=== PATIENT | female | born 1985 | race Caucasian/White ===

== ENCOUNTER 2021-08-04 17:29 | Outpatient (CLI) | payer BC, SELFPAY ==
--- NOTE | ~2021-08-04 | CT_ITS ---
EXAMINATION: CT abdomen pelvis wo con DATE: 08/04/2021 17:55 INDICATION: Abdominal and pelvic swelling TECHNIQUE: Computed tomography (CT) of the abdomen and pelvis was performed without intravenous contr ast. The dose-length product was 781.22 mGy-cm. Automated exposure control and iterative reconstructi on technique were employed. COMPARISON: None. FINDINGS: Lung bases are unremarkable. Heart size normal. No significant pleural or pericardial effus ion. There are surgical changes of the stomach. The liver, spleen, pancreas, adrenal glands and kidne ys are unremarkable. There is skin thickening of the breasts with soft tissue nodularity. Recommend c orrelation with mammography. No abnormal pelvic masses or fluid collections. Nonobstructive bowel gas pattern. There is a tiny fat-containing umbilical hernia. No acute osseous abnormality. No lymphaden opathy. No significant vascular abnormality. IMPRESSION: 1. Skin thickening of the breasts with areas of superficial nodularity. Correlation with diagnostic m ammography recommended. 2: No acute abdominal abnormality. Reviewed, dictated and finalized at location A. IMPRESSION: 1. Skin thickening of the breasts with areas of superficial nodularity. Correla tion with diagnostic mammography recommended. 2: No acute abdominal abnormality.
== END 2021-08-04 17:30 | disposition home or self-care (01) ==
PROVIDERS: PCP Surgery Plastic and Reconstructive Surgery; Visit Provider Surgery Plastic and Reconstructive Surgery
DX: R19.00 Intra-abdominal and pelvic swelling, mass and lump, unspecified site (principal)
CPT/HCPCS: 74176

== ENCOUNTER 2021-11-21 08:58 | Outpatient (CLI) | payer BC, SELFPAY ==
[2021-11-21 09:22] LABS: Hemoglobin 14.5 g/dL (12.0-15.0); Mean Corpuscular Hemoglobin 31.2 pg (26-34); Mean Corpuscular Volume 94.6 fl (80-100); Mean Platelet Volume 9.4 fl (7.4-10.4); Platelet Count Result 242 k/mm3 (150-375); Red Blood Count 4.65 M/mm3 (4.2-5.4); Red Cell Distribution Width 12.1 % (11.5-14.5); White Blood Count 3.9 K/mm3 (4.5-10.0)
[2021-11-21 09:33] LABS: Albumin Level 4.4 g/dL (3.5-5.1); Anion Gap 5 mmol/L (8-16); Blood Urea Nitrogen 15 mg/dL (7-17); Carbon Dioxide 32 mmol/L (22-30); Chloride 103 mmol/L (98-107); Estimated Glomerular Filt Rate > 60; Glucose 88 mg/dL (65-110); Potassium 4.3 mmol/L (3.4-5.0); Sodium 140 mmol/L (137-145)
[2021-11-21 09:41] LABS: Prealbumin 27.3 mg/dL (17.6-36.0)
[2021-11-21 10:29] LABS: Iron 48 ug/dL (37-170)
== END 2021-11-21 08:59 | disposition home or self-care (01) ==
LOC: ANHLAB 09:00
PROVIDERS: PCP Surgery Plastic and Reconstructive Surgery; Visit Provider Surgery Plastic and Reconstructive Surgery
DX: Z01.818 Encounter for other preprocedural examination (principal)
CPT/HCPCS: 36415; 80048; 82040; 83540; 84134; 85027

== ENCOUNTER 2021-12-15 00:33 | Day surgery (SDC) | payer OTHER, SELFPAY ==
--- NOTE | 2021-12-08 09:53 | SUR.PREOP ---
Report to the Outpatient Waiting Room, entrance under the green pavilion located off [facility], at time 0600 on date 12/15/21. OR Time: 0730. Time changes happen often and if your time is changed the preop area will call you the afternoon before. - You and your visitor will be asked to self-screen and do not enter if you have any COVID symptoms. - Only one visitor and NO children visitors are allowed at this time. - The patient visitor is requested to leave or wait in car when not with patient due to restrictions. - A mask is required within the hospital. Patients may have clear liquids (water, carbonated beverages, clear teas, apple juice) until 3 hours prior to surgery with a maximum of 20 ounces. - No food from midnight until time of surgery - Infants may have breast milk until 4 hours before surgery, infant formula 6 hours prior to surgery. - Children will be allowed to drink immediately following surgery. If applicable, please bring a bottle or sippy cup to assist with drinking. Juice, water, soda, and popsicles are readily available. For infants on formula, please bring formula the day of surgery. Pacifiers are allowed. Take the following medications with a SIP of water the morning of surgery: ALPRAZOLAM, VANLAFAXINE, QULIPTA, PROPRANOLOL Medications to discontinue per physician STOP VITAMINS & SUPPLEMENTS 12/12/21 Please no make-up, nail armenian, hairspray, perfume, deodorant, or body powder the day of surgery. No jewelry (including any body piercings) or valuables the day of surgery, leave them at home. Please take a shower or bath the night before, or the morning of, surgery with an antibacterial soap. Wear comfortable, loose fitting clothing. Children are encouraged to wear pajamas. - Jewelry must be removed prior to entering the operating room. Rings and piercings that are not removed may be cut off. - The hospital will not accept responsibility for valuables. - Please leave all valuables, including medications, at home the day of surgery. If you are going home after surgery, a licensed school boat driver must drive you home. - NO public transportation without another adult. - We recommend that an adult stay with you for 24 hours following discharge. - We also recommend that you do not drive, make important decision, drink alcoholic beverages, or take any drugs that were not prescribed by your health care provider for at least 24 hours after your discharge time. For Pediatric surgeries, we recommend two adults accompany the child home (only one inside the building at this time). Follow any additional instructions given to you from your surgeon. If you or anyone in your household have experienced Covid symptoms in the past week, please notify your surgeon or the nurse liaison at the phone number below for possible testing. Telephone instructions given to KARINE BATES and asked if any additional questions and then verbalized understanding. Patient advised to call surgeon office or pre surgery nurse liaison [phone] if any additional questions.
[2021-12-08 10:10] VITALS: BMI 30.7
[2021-12-15] VITALS (12 sets, daily range): BP systolic 104–127; BP diastolic 67–80; PULSE 73–98; RESP 14–20; TEMP 36.3–37.1; O2SAT 96–100
[2021-12-15] MEDS: LACTATED RINGERS 1,000 ML 30 ML IV CONT ×2 (06:45→14:27)
[2021-12-15 06:46] LABS: Urine Cotinine NEGATIVE
--- NOTE | 2021-12-15 06:55 | WPDHPUPDATE1 ---
History and Physical Update Update Date/Time: 12/15/21 06:55 History and Physical has been reviewed, including an updated exam of the patient. There are NO changes in the patient's condition. Risks, benefits, and alternatives have been discussed and questions answered. Patient agrees to proceed with procedure.
[2021-12-15] MEDS: SCOPOLAMINE 1.5 MG PATCH TRANSDERM (07:23)
--- NOTE | 2021-12-15 07:25 | PM.IMHP ---
H&P: HPI History of Present Illness Date/Time: 12/15/21 07:25 Chief Complaint: Skin laxity / localized adiposity Narrative: She is here today for Mastopexy with Hguvx-tf-cja abdominoplasty and suction lipectomy. She would like to proceed. Previous note states use of Galaflex; however, the patient today states she does NOT want to use this product. Review of Systems Review of Systems: All systems reviewed & are unremarkable except as noted in HPI and below PMFSH Past Medical History Medical History (Updated 12/15/21 @ 07:27 by Yonatan Garcia MD) Anxiety GERD (gastroesophageal reflux disease) Hx of migraines Surgical History Surgical History (Updated 07/21/21 @ 14:16 by Vandana Tierney) History of sleeve gastrectomy Hx of section Hx of cholecystectomy Social History Social History (Updated 07/21/21 @ 14:17 by Vandana Tierney) Smoking status: Never smoker Alcohol intake: current Alcohol use details: socially Substance use: never Living arrangements: with family Spiritual care concerns: No Meds Home Medications and Allergies Home Medications Medication Instructions Recorded Confirmed Type alprazolam 0.5 mg tablet 0.5 mg PO DAILY PRN Anxiety 07/21/21 12/08/21 History calcium acetate 500 mg PO TID 07/21/21 12/08/21 History docusate potassium 1 tab-cap PO BID 07/21/21 12/08/21 History magnesium 600 mg PO DAILY 07/21/21 12/08/21 History melatonin 5 mg PO DAILY 07/21/21 12/08/21 History omeprazole 20 mg tablet,delayed 20 mg PO DAILY 07/21/21 12/08/21 History release atogepant 60 mg tablet (Qulipta) 60 mg PO DAILY 12/08/21 12/08/21 History propranolol 10 mg tablet 10 mg PO BID 12/08/21 12/08/21 History venlafaxine 75 mg capsule,extended 150 mg PO DAILY 12/08/21 12/08/21 History release 24 hr Allergies Allergy/AdvReac Type Severity Reaction Status Date / Time No Known Allergies Allergy Unverified 12/08/21 10:13 Exam Const: General: cooperative, healthy appearing, comfortable and no acute distress HENMT: Head: normal to inspection Eyes: General: appearance normal, both eyes and all related structures Neck: Neck: normal visual inspection Chest: Chest palpation & inspection: normal inspection of the chest Other: Bilateral grade 3 ptosis Resp: Effort & Inspection: normal respiratory effort and able to speak in complete sentences GI: Inspection: normal to inspection Other: Abdomen with skin laxity. Right abdomen superior lateral to umbilicus mass present (suspect lipoma based on exam / CT) Skin: General skin exam: normal color Neuro: General: patient oriented x3 Assessment and Plan Assessment and plan (1) Skin laxity: Code(s): L57.4 - Cutis laxa senilis Status: Acute Assessment and Plan: She would like to proceed with Mastopexy, [id number]-[id number] abdominoplasty, suction lipectomy. Risks, benefits, alternatives were discussed in extensive detail. I want to be very realistic about the risks involved as well as expectations. Reviewed consent in detail. Discussed aftercare and what to monitor for. Made sure I answered all questions answered to satisfaction and consent obtained. (2) Localized adiposity: Code(s): E65 - Localized adiposity Status: Acute (3) Breast ptosis: Code(s): N64.81 - Ptosis of breast Status: Acute
--- NOTE | 2021-12-15 07:26 | P.PNAN_ITS ---
Anes - Initial Pre Proc Eval Procedure: Operation Date: 12/15/21 07:30 Proposed Procedures p Bilateral Breast Mastopexy - Kamlesh Ya MD s Abdominoplasty with Pati De Lis Liposuction - Kamlesh Ya MD Date/Time: 12/15/21 07:26 Surgeon: Kamlesh Ya MD Pre Op Diagnosis: breast ptosis,skin laxity,localized adiposity Patient Data Age: 36 Gender: F Height: 1.68 m Weight: 86.2 kg Allergies Allergy/AdvReac Type Severity Reaction Status Date / Time No Known Allergies Allergy Unverified 12/08/21 10:13 Home Medications Medication Instructions Recorded Confirmed Type alprazolam 0.5 mg tablet 0.5 mg PO DAILY PRN Anxiety 07/21/21 12/08/21 History calcium acetate 500 mg PO TID 07/21/21 12/08/21 History docusate potassium 1 tab-cap PO BID 07/21/21 12/08/21 History magnesium 600 mg PO DAILY 07/21/21 12/08/21 History melatonin 5 mg PO DAILY 07/21/21 12/08/21 History omeprazole 20 mg tablet,delayed 20 mg PO DAILY 07/21/21 12/08/21 History release atogepant 60 mg tablet (Qulipta) 60 mg PO DAILY 12/08/21 12/08/21 History propranolol 10 mg tablet 10 mg PO BID 12/08/21 12/08/21 History venlafaxine 75 mg capsule,extended 150 mg PO DAILY 12/08/21 12/08/21 History release 24 hr Laboratory Tests 12/15/21 06:24 Cotinine Negative Patient hx anesthesia problems: none Family hx anesthesia problems: none Results Review: All pre-operative results and documents have been reviewed as part of the pre- operative evaluation. FORMERLY [facility], [facility] Past Medical History Medical History Anxiety GERD (gastroesophageal reflux disease) Hx of migraines Surgical History Surgical History History of sleeve gastrectomy Hx of section Hx of cholecystectomy Social History Social History Smoking status: Never smoker Alcohol intake: current Alcohol use details: socially Substance use: never Living arrangements: with family Spiritual care concerns: No Anes - Eval Final PreProcedure Day of Procedure 12/15/21 07:26 Patient weight: obese Heart: regular rate and rhythm Lungs: clear to auscultation Airway: Mallampati scale class II Neurological: alert and oriented Last oral intake: >/= 8 hours ASA classification: II Emergent: no Anesthetic plan: proceed Anesthesia type and monitoring: general ETT and standard monitoring Results Review: All pre-operative results and documents have been reviewed as part of the pre- operative evaluation. Informed Consent: The patient's anesthetic plan and its attendant risks and benefits were discussed with the patient/family/POA. Questions were solicited and answers provided to the satisfaction of the patient/family/POA.
--- NOTE | 2021-12-15 07:29 | WPDHPUPDATE1 ---
History and Physical Update Update Date/Time: 12/15/21 07:29 History and Physical has been reviewed, including an updated exam of the patient. There are NO changes in the patient's condition. Risks, benefits, and alternatives have been discussed and questions answered. Patient agrees to proceed with procedure.
[2021-12-15 07:32] LABS: Hematocrit 37.9 % (37.0-47.0); Hemoglobin 12.5 g/dL (12.0-15.0)
[2021-12-15] MEDS: ceFAZolin 2 GM/D5W 50 ML 2 GM/50 ML BAG IVPB (07:33)
[2021-12-15] MEDS: LACTATED RINGERS IRRIG 1,000 ML, LIDOCAINE HCL 1% LOCAL INJ 50 ML, EPINEPHrine HCL INJ ... INFILTRATE (07:35)
[2021-12-15] MEDS: TRANEXAMIC ACID 1,000MG/ISO100 1,000 MG/100 ML BAG 200 MG IVPB (07:49)
--- NOTE | 2021-12-15 14:21 | W.PM.PROC2 ---
Procedure Note - Detailed Date of Procedure 12/15/21 Pre-op Diagnosis breast ptosis,skin laxity,localized adiposity Post-op Diagnosis Same Procedure Performed 1. Bilateral mastopexy 2. Ezwad-lt-dzw abdominoplasty 3. Suction lipectomy abdomen / flank Surgeon Kamlesh Ya MD Findings Breast Superior medial pedicle Inverted T Abdomen / Flank Lipoaspirate 2,000 cc Tissue removed 3258 grams Description of Procedure They are here today for the above. Previously and again today the risks, benefits, alternatives were discussed in extensive detail. I wanted them to be very realistic about the risks involved as well as expectations. We discussed aftercare and what to monitor for. She states she does NOT wish to proceed with Galaflex. She would like to proceed [id number]. I was very upfront about the risks of wound breakdown leading to loss of skin, open wounds, and need for additional procedures with permanent abdominal deformity. We discussed DVT/PE risks and management. Made sure answered all of their questions to their satisfaction today and consent was obtained. Marked in the preoperative holding area with their verification. The patient was taken to the operating room placed supine on the operating table. Anesthesia was provided by anesthesiology. She was prepped and draped in a standard sterile fashion. Breast Stab incisions were made breast and infiltrated with low volume tumescent solution. I tailor tacked the breast into position. Placed her in a sitting position. Verified the nipple-areolar location based on preoperative planning as well as intraoperative observations and measurements in full agreement. She was placed supine. I de-epithelialized the pedicle. I then de-epithealized the inferior portion of the breast based on can closing machine tender. This was developed as an auto-augmentation flap sutured to the chest wall with 2-0 PDS. I closed along the IMF with 2-0 Stratafix. Along the vertical with 2-0 PDS. I closed around the Artem with 3-0 strata fix. 3-0 Monocryl along the vertical. 3-0 Stratafix along the IMF. I finally closed everything with running subcuticular 4-0 Monocryl and tissue glue. Abdomen I placed the patient in a flexed position to verify the upper and lower markings would reach. I then placed supine. A thorough abdominal examination was completed. Stab incisions were made and tumescent solution infiltrated. A liposuction basket cannula was utilized to provide discontinuous undermining / suction lipectomy using a 5mm basket cannula in multiple planes and passes. Patient was turned side to side during procedure to optimize suction lipectomy of abdomen and flank. This was based on pre-operative planning, intraoperative observations, and rolling pinch test which was in full agreement. A 10 blade was used to make the upper incision and [id number] vertical incision. I continued dissection down to the level of fascia. Elevated just what was necessary for repair of the diastasis. I then again flexed the bed to verify the upper skin flap would reach the lower markings without tension. Once verified I placed her supine once again and a 10 blade used to make the lower incision. I elevated up to level the umbilicus and left the umbilicus intact on a well-vascularized stalk. The intervening tissue was removed. A 2 mm blunt cannula with 0.5% bupivicaine was injected deep to the fascia bilaterally. I plicated the diastasis recti using 0 PDO stratafix barbed suture. This was in 2 separate layers using 2 separate sutures as well. I repaired around the umbilicus leaving plenty of room for well-vascularized stalk of the umbilicus with 2-0 PDS. The patient was flexed and starting from superior to inferior began plication using 2-0 Vicryl to obliterate all space in a standard progressive tension fashion. Vertical incision was closed with 2-0 Vicryl, 3-0 Monocryl, and 4-0 Monocryl. At the umbilicus Bharat byrd
[2021-12-15] MEDS: HYDROmorphone HCL INJ (*CRX) 1 MG/ML SYR 0.25 MG IV PUSH ×4 (15:02→15:18)
[2021-12-15] MEDS: LACTATED RINGERS 1,000 ML 125 ML IV CONT (16:45)
--- NOTE | 2021-12-15 17:31 | OBPPTRN ---
1622 Patient transferred to post room #289 via bed. Oriented to unit, room, information board, admission packet and security measures. Patient verbalizes understanding.
[2021-12-15] MEDS: carisoprodoL (*CRX) 350 MG TABLET PO (18:19)
[2021-12-15] MEDS: ENOXAPARIN 40 MG/0.4 ML SYRINGE SUB-Q (21:15)
[2021-12-15] MEDS: ONDANSETRON INJ 4 MG/2 ML VIAL IV PUSH (21:20)
[2021-12-15] MEDS: MORPHINE SULFATE (*CRX) 2 MG/ML INJ IV PUSH (21:22)
[2021-12-15] MEDS: PROPRANOLOL HCL 10 MG TABLET PO (22:34)
[2021-12-15] MEDS: DOCUSATE SODIUM 100 MG CAPSULE PO (22:34)
[2021-12-16 00:20] VITALS: BP 90/54; PULSE 90; RESP 16; TEMP 36.7; O2SAT 99
[2021-12-16] MEDS: LACTATED RINGERS 1,000 ML 125 ML IV CONT (00:25)
[2021-12-16] MEDS: carisoprodoL (*CRX) 350 MG TABLET PO ×3 (00:26→13:27)
[2021-12-16 05:30] VITALS: BP 93/56; PULSE 104; RESP 18; TEMP 36.8; O2SAT 96
--- NOTE | 2021-12-16 07:10 | WPDPN ---
Progress Note: A&P Assessment and Plan (1) Breast ptosis: Code(s): N64.81 - Ptosis of breast Status: Acute Assessment and Plan: Doing well after mastopexy, zppby-lb-sae abdominoplasty, suction lipectomy. Will plan for discharge home. Today we had a lengthy conversation about the care. What monitor for. Activity limitations. What is an emergency and went to proceed to the emergency room. This was a lengthy open-ended conversation making sure answered all of her questions. She voiced a clear understanding. I will see her back. Call with any questions or concerns. (2) Skin laxity: Code(s): L57.4 - Cutis laxa senilis Status: Acute (3) Localized adiposity: Code(s): E65 - Localized adiposity Status: Acute Subjective Date/time seen: 12/16/21 07:10 Interval history: She is doing very well after mastopexy, jedjl-yr-zex abdominoplasty, suction lipectomy. Overnight she had a little lightheaded when getting out of bed. This quickly resolved otherwise feeling well. No fevers or chills. No nausea vomiting. Shortness of chest pain. No calf tenderness. Currently no complaints. Pain is decently controlled. Review of Systems Review of Systems: All systems reviewed & are unremarkable except as noted in HPI and below Exam Narrative: Alert and oriented no obvious distress Respiratory on labored Bilateral breasts are healing well. No signs of infection. No hematoma. Seroma. Good color and capillary refill Abdomen is healing well. No signs of infection. No hematoma. No seroma. Good color and capillary refill. No calf tenderness. Negative Homans. Objective Data Vital Signs Vital Signs: Vital Signs - 24 hr 12/15/21 14:27 12/15/21 14:35 12/15/21 14:50 Temperature 37.1 C Pulse Rate 98 94 90 Respiratory Rate 15 14 18 Blood Pressure 127/79 120/80 116/75 Pulse Oximetry 100 100 100 Oxygen Delivery Simple Face Mask Simple Face Mask Simple Face Mask Oxygen Flow Rate 8 8 8 12/15/21 15:05 12/15/21 15:19 12/15/21 15:30 Temperature Pulse Rate 96 90 96 Respiratory Rate 14 16 20 Blood Pressure 116/76 115/75 121/72 Pulse Oximetry 97 97 96 Oxygen Delivery Room Air Room Air Room Air Oxygen Flow Rate 12/15/21 15:45 12/15/21 16:00 12/15/21 17:39 Temperature Pulse Rate 87 86 Respiratory Rate 15 14 Blood Pressure 119/78 119/76 Pulse Oximetry 98 97 Oxygen Delivery Room Air Room Air Room Air Oxygen Flow Rate 12/15/21 17:39 12/15/21 22:34 12/15/21 19:40 Temperature 36.3 C L Pulse Rate 88 98 92 Respiratory Rate 18 18 Blood Pressure 127/71 Pulse Oximetry 99 98 Oxygen Delivery Room Air Oxygen Flow Rate 12/15/21 19:40 12/16/21 00:20 12/16/21 00:20 Temperature 36.8 C 36.7 C Pulse Rate 92 90 90 Respiratory Rate 18 16 16 Blood Pressure 104/67 90/54 L Pulse Oximetry 98 99 99 Oxygen Delivery Room Air Oxygen Flow Rate 12/16/21 05:30 12/16/21 05:30 Temperature 36.8 C Pulse Rate 104 H 104 H Respiratory Rate 18 18 Blood Pressure 93/56 L Pulse Oximetry 96 96 Oxygen Delivery Room Air Oxygen Flow Rate Intake/Output Intake/Output: Intake & Output 12/13/21 12/14/21 12/15/21 12/16/21 23:59 23:59 23:59 23:59 Intake Total 200 1360 Output Total 485 500 Balance -285 860 Meds/Results Medications: Active Medications Generic Name Dose Route Start Last Admin Trade Name Freq PRN Reason Stop Dose Admin Carisoprodol 350 mg 12/15/21 18:00 12/16/21 05:43 Carisoprodol (*Crx) 350 Mg Tablet PO 350 mg Q6HR CHERRI Administration Diazepam 5 mg 12/15/21 16:02 Diazepam (*Crx) 5 Mg Tablet PO TID PRN Anxiety Docusate Sodium 100 mg 12/15/21 21:00 12/15/21 22:34 Docusate Sodium 100 Mg Capsule PO 100 mg Q12HR CHERRI Administration Enoxaparin Sodium 40 mg 12/15/21 21:00 12/15/21 21:15 Enoxaparin 40 Mg/0.4 Ml Syringe SUB-Q 40 mg DAILY CHERRI Administration Lactated Rin
--- NOTE | 2021-12-16 07:18 | PM.DS ---
DS: Admitting Diagnosis Discharge Date 12/16/2021 Admitting Diagnosis Breast ptosis, skin laxity, localized adiposity. DS: Discharge Diagnosis Discharge Diagnosis (1) Breast ptosis: Code(s): N64.81 - Ptosis of breast Status: Acute (2) Skin laxity: Code(s): L57.4 - Cutis laxa senilis Status: Acute (3) Localized adiposity: Code(s): E65 - Localized adiposity Status: Acute DS: Summary Hospital Course Hospital Course: She underwent mastopexy, owinc-tk-rfz abdominoplasty, suction lipectomy. Postoperatively has done well. Will discharge home. Time spent discussing smoking cessation with patient: more than 10 minutes Time Spent with Patient Time attestation: Total time spent providing and/or coordinating discharge services: Exam Narrative: Alert and oriented no obvious distress Respiratory on labored Bilateral breasts are healing well. No signs of infection. No hematoma. Seroma. Good color and capillary refill Abdomen is healing well. No signs of infection. No hematoma. No seroma. Good color and capillary refill. No calf tenderness. Negative Homans. DS: Data Data Completed and Pending Labs on day of discharge: Labs from last 24 hours 12/15/21 06:54 Hgb 12.5 Hct 37.9 Discharge Plan Discharge Patient Disposition: Home, Self-Care Discharge Instructions: POST OPERATIVE DISCHARGE INSTRUCTIONS KAMLESH YA M.D. [facility] [address] [address] [place] [address] [address] for 24 hours after anesthesia and while you are taking pain medication. Take all prescribed medication as directed Diet as tolerated. No lifting or activity that raises blood pressure for 48 hours. Regular walking / ambulation. May shower.. Once you shower do not take pain medication before showering as the combination of medication and heat may cause you to feel dizzy or pass out. No pools or tubs for 2 weeks. Slowly stand up straight as tolerated. No straining / lifting more than 20 pounds for 6 weeks. Call with any questions or concerns. Dressing Care: Surgical bra (or sports bra) 23 hours per day. No under wire. Abdominal binder 23 hours per day. If you have any questions or concerns, please call the office . If it is after hours you will be directed to the construction mgr exchange. Shortness of breath, chest pain, or other medical emergency dial 911 / proceed to the Emergency Room. Remove the Scopolamine patch that was placed behind your ear in 72 hours or less. Wash your hands after touching. Stand Alone Forms: General Discharge Instructions Follow-up/Referrals: Kamlesh Ya MD [Physician] - 1 Week Discharge Medications: Continued omeprazole 20 mg tablet,delayed release (DR/EC) 20 mg PO DAILY alprazolam 0.5 mg tablet 0.5 mg PO DAILY PRN (Reason: Anxiety) magnesium 600 mg PO DAILY docusate potassium 1 tab-cap PO BID calcium acetate 500 mg PO TID melatonin 5 mg PO DAILY venlafaxine 75 mg capsule,extended release 24hr 150 mg PO DAILY propranolol 10 mg tablet 10 mg PO BID Qulipta 60 mg Tablet 60 mg PO DAILY
[2021-12-16 08:00] VITALS: BP 108/68; PULSE 102; RESP 18; TEMP 36.6; O2SAT 100
[2021-12-16] MEDS: oxyCODONE/ACETAMINOPHEN (*CRX) 5-325 MG TABLET PO ×2 (08:19→14:02)
[2021-12-16] MEDS: ONDANSETRON INJ 4 MG/2 ML VIAL IV PUSH (08:38)
--- NOTE | 2021-12-16 08:47 | WPDANESPN ---
Anes - Prog Note Post-Op Date/Time: 12/16/21 08:47 Cardiovascular status: normal Respiratory status: normal Airway patency: baseline Mental status: baseline Post-Op hydration status: normal Vital Signs: Last Vital Signs Temp 98.2 F 12/16/21 05:30 Pulse 104 H 12/16/21 05:30 Resp 18 12/16/21 05:30 BP 93/56 L 12/16/21 05:30 Pulse Ox 96 12/16/21 05:30 O2 Del Method Room Air 12/16/21 05:30 O2 Flow Rate 8 12/15/21 14:50 Pain Score (VAS): 6 I/O: Intake & Output 12/15/21 12/16/21 12/16/21 23:59 07:59 15:59 Intake Total 200 1360 Output Total 325 500 Balance -125 860 Laboratory Tests 12/15/21 06:54 Post-procedural complaints: nausea Patient Feedback: Patient satisfied with anesthetic care.
[2021-12-16] MEDS: ENOXAPARIN 40 MG/0.4 ML SYRINGE SUB-Q (10:05)
[2021-12-16] MEDS: VENLAFAXINE HCL XR 75 MG CAP.ER.24H 150 MG PO (10:06)
[2021-12-16] MEDS: DOCUSATE SODIUM 100 MG CAPSULE PO (10:07)
[2021-12-16] MEDS: PANTOPRAZOLE 40 MG TABLET PO (10:07)
[2021-12-16 10:08] VITALS: PULSE 70
[2021-12-16] MEDS: PROPRANOLOL HCL 10 MG TABLET PO (10:08)
== END 2021-12-16 14:19 | disposition home or self-care (01) ==
LOC: ANHSURGERY 07:24 → ANHOB2 16:08
PROVIDERS: Anesthesiology; Visit Provider Surgery Plastic and Reconstructive Surgery
PROC: (CPT 19316; principal; 2021-12-15 07:30)
PROC: (CPT 19316; 2021-12-15 07:30)
DX: Z41.1 Encounter for cosmetic surgery (principal); L57.4 Cutis laxa senilis; E65 Localized adiposity; N64.81 Ptosis of breast; K21.9 Gastro-esophageal reflux disease without esophagitis; F41.9 Anxiety disorder, unspecified; Z79.899 Other long term (current) drug therapy; Z98.84 Bariatric surgery status; E66.9 Obesity, unspecified; Z68.31 Body mass index [BMI] 31.0-31.9, adult
CPT/HCPCS: 19316; 15830; 15847; 15877; 80307; 85014; 85018; 99199; A9270; J0171; J0690; J1100; J1170; J1580; J1650; J1741; J2250; J2270; J2405; J2704; J7120